=== PATIENT | female | born 1990 ===

== ENCOUNTER 2020-12-15 19:37 | Inpatient (IN) | payer MEDICAID ==
[2020-12-15] MEDS: Lactated Ringers 1,000 ML IV SCH (20:07)
[2020-12-15] MEDS ORDERED: Tranexamic Acid 1,000 MG in Sodium Chloride 0.9% 100 ML IV PRN (20:29)
[2020-12-15] MEDS ORDERED: Sodium Chloride 0.9% 10 ML Syringe FLUSH PRN (20:29)
[2020-12-15] MEDS ORDERED: Misoprostol 200 MCG Tab PO PRN (20:29)
[2020-12-15] MEDS ORDERED: Lidocaine 1% 50 ML MDV INJECT PRN (20:29)
[2020-12-15] MEDS ORDERED: Terbutaline 1 MG/ML SDV SUBCUT PRN (20:29)
[2020-12-15] MEDS ORDERED: Sodium Chloride 0.9% 10 ML SDV IV PRN (20:29)
[2020-12-15] MEDS ORDERED: Nalbuphine 10 MG/1 ML Vial IVPUSH PRN (20:29)
[2020-12-15] MEDS ORDERED: Water For Irrigation,Sterile 1,000 ML Container IRR PRN (20:29)
[2020-12-15] MEDS ORDERED: Carboprost Tromethamine 250 MCG/1 ML Amp IM PRN (20:29)
[2020-12-15] MEDS ORDERED: Ondansetron 4 MG/2 ML SDV IVPUSH PRN (20:29)
[2020-12-15] MEDS ORDERED: Methylergonovine 0.2 MG/1 ML Amp IM PRN (20:29)
[2020-12-15] MEDS ORDERED: Sodium Chloride 0.9% 2.5 ML Syringe FLUSH PRN (20:29)
[2020-12-15] MEDS ORDERED: Oxytocin/0.9 % Sodium Chloride 30 UNIT/500 ML BAG IV SCH ×2 (20:30)
[2020-12-15] MEDS ORDERED: Misoprostol 25 MCG (1/4 of 100 MCG) Tab ONE (20:43)
[2020-12-15] MEDS ORDERED: Misoprostol 25 MCG (1/4 of 100 MCG) Tab VAG PRN (21:00)
[2020-12-16] MEDS ORDERED: Misoprostol 25 MCG (1/4 of 100 MCG) Tab VAG PRN (01:00)
[2020-12-16] MEDS: Butorphanol 1 MG/ML SDV IVPUSH PRN ×3 (02:48→06:31)
[2020-12-16] MEDS ORDERED: Bupivacaine 0.25% 10 ML SDV ONE (08:37)
[2020-12-16] MEDS ORDERED: Ropivacaine HCl/PF 200 ML ONE ×2 (08:37→23:43)
[2020-12-16] MEDS: Lactated Ringers 1,000 ML IV SCH ×2 (09:57→17:41)
[2020-12-16] MEDS ORDERED: Acetaminophen 500 MG Tab PO ONE (17:31)
[2020-12-17] MEDS ORDERED: Lanolin 100% Cream 7 GM Tube TOP PRN (05:22)
[2020-12-17] MEDS ORDERED: Witch Hazel Medicated Pads 40/Jar TOP PRN (05:22)
[2020-12-17] MEDS ORDERED: Acetaminophen 500 MG Tab PO PRN ×2 (05:22)
[2020-12-17] MEDS ORDERED: Carboprost Tromethamine 250 MCG/1 ML Amp IM PRN (05:22)
[2020-12-17] MEDS ORDERED: Bisacodyl 10 MG Supp RECTAL PRN (05:22)
[2020-12-17] MEDS ORDERED: Tranexamic Acid 1,000 MG in Sodium Chloride 0.9% 100 ML IV PRN (05:22)
[2020-12-17] MEDS ORDERED: oxyCODONE 5 MG Tab PO PRN (05:22)
[2020-12-17] MEDS ORDERED: Methylergonovine 0.2 MG/1 ML Amp IM PRN (05:22)
[2020-12-17] MEDS ORDERED: Docusate Sodium 100 MG Cap PO PRN (05:22)
[2020-12-17] MEDS ORDERED: Ibuprofen 400 MG Tab PO PRN (05:22)
[2020-12-17] MEDS ORDERED: Benzocaine/Menthol 20%-0.5% Spray 78 GM Cannister TOP PRN (05:22)
[2020-12-17] MEDS ORDERED: Misoprostol 200 MCG Tab RECTAL PRN (05:22)
[2020-12-17] MEDS ORDERED: Oxytocin/0.9 % Sodium Chloride 30 UNIT/500 ML BAG ONE (05:26)
--- NOTE | 2020-12-17 12:01 | PCM.PREANE ---
Preanesthetic Assessment - Anesthesia/Transfusion/Family Hx Anesthesia History: No Prior Anesthesia Family History of Anesthesia Reaction: No Transfusion History: No Prior Transfusion(s) - Review of Systems General: No Symptoms Pulmonary: No Symptoms Cardiovascular: No Symptoms Gastrointestinal: No Symptoms Neurological: No Symptoms Other: Reports: None - Physical Assessment NPO Status Date: 12/16/20 NPO Status Time: 00:00 Vital Signs: Last Vital Signs Temp 97.4 F 12/17/20 07:15 Pulse 71 12/16/20 12:46 Resp 16 12/17/20 07:15 BP 121/74 12/17/20 07:15 Pulse Ox 99 12/16/20 12:46 Height: 4 ft 11 in Weight: 150 lb ASA Class: 2 Mental Status: Alert & Oriented x3 Airway Class: Mallampati = 3 Dentition: Reports: Normal Dentition ROM/Head Extension: Full Lungs: Clear to Auscultation, Normal Respiratory Effort Cardiovascular: Regular Rate, Regular Rhythm - Lab Values: Laboratory Last Values WBC 8.71 K/uL (4.0-11.0) 12/15/20 20:04 RBC 3.58 M/uL (4.30-5.90) L 12/15/20 20:04 Hgb 10.1 g/dL (12.0-16.0) L 12/15/20 20:04 Hct 31.1 % (36.0-46.0) L 12/15/20 20:04 MCV 86.9 fL (80.0-98.0) 12/15/20 20:04 MCH 28.2 pg (27.0-32.0) 12/15/20 20:04 MCHC 32.5 g/dL (31.0-37.0) 12/15/20 20:04 RDW Std Deviation 48.3 fl (28.0-62.0) 12/15/20 20:04 RDW Coeff of Rudy 15 % (11.0-15.0) 12/15/20 20:04 Plt Count 277 K/uL (150-400) 12/15/20 20:04 MPV 10.00 fL (7.40-12.00) 12/15/20 20:04 Nucleated RBC % 0.0 /100WBC 12/15/20 20:04 Nucleated RBCs # 0 K/uL 12/15/20 20:04 Cord ABG pH 7.172 (7.18-7.38) L 12/17/20 04:58 Cord ABG Base Excess -10 (-10--2) 12/17/20 04:58 Cord VBG pH 7.234 (7.25-7.45) L 12/17/20 04:58 Cord VBG Base Excess -9 (-10--2) 12/17/20 04:58 SARS-CoV-2 RNA (CHATO) NEGATIVE (NEGATIVE) 12/15/20 20:04 Blood Type A POSITIVE 12/15/20 20:04 Antibody Screen NEGATIVE 12/15/20 20:04 - Allergies Allergies/Adverse Reactions: Allergies Allergy/AdvReac Type Severity Reaction Status Date / Time No Known Allergies Allergy Verified 12/15/20 19:54 - Blood Blood Available: Yes Product(s) Available: PRBC - Anesthesia Plan Pre-Op Medication Ordered: None - Acknowledgements Anesthesia Type Planned: Epidural Pt an Appropriate Candidate for the Planned Anesthesia: Yes Alternatives and Risks of Anesthesia Discussed w Pt/Guardian: Yes Pt/Guardian Understands and Agrees with Anesthesia Plan: Yes PreAnesthesia Questionnaire - Past Health History Medical/Surgical History: Denies 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: - SUBSTANCE USE Tobacco Use Status *Q: Never Tobacco User Second Hand Smoke Exposure: No - HOME MEDS Home Medications: Home Meds Aspirin 81 mg PO DAILY 12/15/20 [History] Pnv No.95/Ferrous Fum/Folic AC [ Vitamin Tablet] 1 tab PO DAILY 12/15/20 [History] - CURRENT (IN HOUSE) MEDS Current Meds: Current Medications Acetaminophen (Acetaminophen 500 Mg Tab) 500 mg PO Q4H PRN PRN Reason: Pain (mild 1-3) Acetaminophen (Acetaminophen 500 Mg Tab) 1,000 mg PO Q4H PRN PRN Reason: Pain (mild 1-3) Last Admin: 12/17/20 07:37 Dose: 1,000 mg Documented by: Benzocaine/Menthol (Benzocaine/Menthol 20%-0.5% [place] 78 Gm Cannister) 78 gm TOP ASDIRECTED PRN PRN Reason: Perineal Comfort Measure Last Admin: 12/17/20 07:38 Dose: 1 can Documented by: Bisacodyl (Bisacodyl 10 Mg Supp) 10 mg RECTAL ONETIME PRN PRN Reason: Constipation Carboprost Tromethamine (Carboprost Tromethamine 250 Mcg/1 Ml Amp) 250 mcg IM ASDIRECTED PRN PRN Reason: Excessive vaginal bleeding Docusate Sodium (Docusate Sodium 100 Mg Cap) 100 mg PO Q12H PRN PRN Reason: Constipation Emollient Ointment (Lanolin 100% Cream 7 Gm Tube) 0 gm TOP ASDIRECTED PRN PRN Reason: Sore Nipples Last Admin: 12/17/20 07:37 Dose: 1 applic Documented by: Tranexamic Acid 1,000 mg/ (Sodium Chloride) 110 mls @ 660 mls/hr IV ONETIME PRN PRN Reason: Bleeding Ibuprofen (Ibuprofen 400 Mg Tab) 400 mg PO Q4H PRN PRN Reason: Pain (mild 1-3) Ibuprofen (Ibuprofen 800 Mg Tab) 800 mg PO Q6H PRN PRN Reason: Pain (mild 1-3) Methylergonovine Maleate (Methylergonovine 0.2 Mg/1 Ml Amp) 0.2 mg IM ONETIME PRN PRN Reason: Excessive Vaginal Bleeding Misoprostol (Misoprostol 200 Mcg Tab) 1,000 mcg RECTAL ONETIME PRN PRN Reason: excessive vaginal bleeding Oxycodone HCl (Oxycodone 5 Mg Tab) 5 mg PO Q2H PRN PRN Reason: Pain (severe 7-10) Sodium Chloride (Sodium Chloride 0.9% 10 Ml Syringe) 10 ml FLUSH ASDIRECTED PRN PRN Reason: Keep Vein Open Sodium Chloride (Sodium Chloride 0.9% 2.5 Ml Syringe) 2.5 ml FLUSH ASDIRECTED PRN PRN Reason: Keep Vein Open Sodium Chloride (Sodium Chloride 0.9% 10 Ml Sdv) 10 ml IV ASDIRECTED PRN PRN Reason: IV Use Witch Alise (Witch Alise Medicated Pads 40/Jar) 1 pad TOP ASDIRECTED PRN PRN Reason: comfort care Last Admin: 12/17/20 07:38 Dose: 1 box Documented by: Discontinued Medications Acetaminophen (Acetaminophen 500 Mg Tab) 1,000 mg PO ONETIME ONE Stop: 12/16/20 17:32 Last Admin: 12/16/20 17:43 Dose: 1,000 mg Documented by: Bupivacaine HCl (Bupivacaine 0.25% 10 Ml Sdv) Confirm Administered Dose 10 ml .ROUTE .STK-MED ONE Stop: 12/16/20 08:38 Butorphanol Tartrate (Butorphanol 1 Mg/Ml Sdv) 1 mg IVPUSH Q1H PRN PRN Reason: Pain (severe 7-10) Last Admin: 12/16/20 06:31 Dose: 1 mg Documented by: Carboprost Tromethamine (Carboprost Tromethamine 250 Mcg/1 Ml Amp) 250 mcg IM ASDIRECTED PRN PRN Reason: Post Hemorrhage Oxytocin/Sodium Chloride (Oxytocin 30 Unit/500 Ml-Ns) 30 unit in 500 mls @ 500 mls/hr IV TITRATE SUMAYA Last Admin: 12/17/20 05:00 Dose: 500 mls/hr Documented by: Tranexamic Acid 1,000 mg/ (Sodium Chloride) 110 mls @ 660 mls/hr IV ONETIME PRN PRN Reason: Bleeding Oxytocin/Sodium Chloride (Oxytocin 30 Unit/500 Ml-Ns) 30 unit in 500 mls @ 2 mls/hr IV TITRATE SUMAYA; Protocol Last Titration: 12/16/20 23:00 Dose: 17 munits/min, 17 mls/hr Documented by: Lactated Ringer's (Ringers, Lactated) 1,000 mls @ 150 mls/hr IV ASDIRECTED SUMAYA Last Admin: 12/16/20 17:41 Dose: 150 mls/hr Documented by: Ropivacaine (Naropin 0.2%) Confirm Administered Dose 200 mls @ as directed .ROUTE .STK-MED ONE Stop: 12/16/20 08:38 Ropivacaine (Naropin 0.2%) Confirm Administered Dose 200 mls @ as directed .ROUTE .STK-MED ONE Stop: 12/16/20 23:44 Oxytocin/Sodium Chloride (Oxytocin 30 Unit/500 Ml-Ns) Confirm Administered Dose 30 unit in 500 mls @ as directed .ROUTE .STK-MED ONE Stop: 12/17/20 05:27 Lidocaine HCl (Lidocaine 1% 50 Ml Mdv) 50 ml INJECT ONETIME PRN PRN Reason: Laceration repair Methylergonovine Maleate (Methylergonovine 0.2 Mg/1 Ml Amp) 0.2 mg IM ASDIRECTED PRN PRN Reason: Post Hemorrhage Misoprostol (Misoprostol 200 Mcg Tab) 200 mcg PO ONETIME PRN PRN Reason: Post Hemorrhage Misoprostol (Misoprostol 25 Mcg (1/4 Of 100 Mcg) Tab) 25 mcg VAG ONETIME PRN PRN Reason: Cervical Ripening Last Admin: 12/15/20 20:56 Dose: 25 mcg Documented by: Misoprostol (Misoprostol 25 Mcg (1/4 Of 100 Mcg) Tab) 25 mcg VAG Q4H PRN PRN Reason: Cervical Ripening Last Admin: 12/16/20 01:01 Dose: 25 mcg Documented by: Misoprostol (Misoprostol 25 Mcg (1/4 Of 100 Mcg) Tab) Confirm Administered Dose 25 mcg .ROUTE .STK-MED ONE Stop: 12/15/20 20:44 Nalbuphine HCl (Nalbuphine 10 Mg/1 Ml Vial) 10 mg IVPUSH Q1H PRN PRN Reason: Pain (severe 7-10) Ondansetron HCl (Ondansetron 4 Mg/2 Ml Sdv) 4 mg IVPUSH Q6H PRN PRN Reason: Nausea/Vomiting Sterile Water (Water For Irrigation,Sterile 1,000 Ml Container) 1,000 ml IRR ASDIRECTED PRN PRN Reason: delivery Terbutaline Sulfate (Terbutaline 1 Mg/Ml Sdv) 0.25 mg SUBCUT ASDIRECTED PRN PRN Reason: Tacysystole - Pre-Procedure Checklist Attending Provider Aware: Yes Chart Reviewed: Yes Consent Signed: Yes Labs Reviewed: Yes VS/FHR Reviewed: Yes Patient Identification Confirmation Method: Reports: Verbal Patient Pt an Appropriate Candidate for the Planned Anesthesia: Yes Alternatives and Risks of Anesthesia Discussed w Pt/Guardian: Yes - Procedure Procedure Start Date: 12/16/20 Procedure Start Time: 08:[address]: Reports: Blood Pressure, Heart Rate, SPO2 Functional IV: Yes Safety Measures: Reports: Patient Identified, Procedure Verified, Site Verified, Procedure Time Out Patient Position: Reports: Sitting Prep: Reports: Betadine x3, Sterile Drape Local Anesthetic: Reports: Intradermal Wheal w Lidocaine 1% Regional Placement Level: Reports: L3-4 Needle: Reports: 17 g Touhy Approach: Reports: Midline Technique: Reports: MARC Plastic Syringe Parasthesia: Reports: None Fluid Obtained: Reports: None Test Dose Time: 08:47 Test Dose Medication: Reports: Lidocaine 1.5% w Epinephrine 1:200,000 Test Dose Response: Reports: Negative Loading Dose Time: 08:50 Loading Dose Medication: bupivicaine 0.25% 10cc Loading Dose Patient Position: sitting Continuous Infusion Start Time: 08:55 Continuous Infusion Medication: ropivicaine 0.2% Continuous Infusion Rate: 14 Continuous Infusion PCS Bolus Option: 4 Continuous Infusion Lockout Dose (cc/hr): 20 Patient Position Post Placement: Reports: Supline/FEROZ VS and FHR Monitored in Unit Post Placement: Yes Procedure End Date: 12/16/20 Procedure End Time: 09:42
[2020-12-17] MEDS: Ibuprofen 800 MG Tab PO PRN ×2 (13:58→21:28)
--- NOTE | 2020-12-17 18:08 | OR ---
SURGEON: Rhett Greenfield MD DATE OF PROCEDURE: 12/17/2020 INDICATION FOR PROCEDURE: A 30-year-old -1-2-0 at 39 weeks and 4 days, admitted for induction of labor for polyhydramnios. The patient was noted to have polyhydramnios with ROSY between 25 and 27 at 35 weeks. arrhythmia was also found at that time, she was evaluated by Perinatology and found to have a normal anatomy. The arrhythmia resolved on its own at 38 weeks. She had weekly BPP and NSTs that were reassuring She has a history of demise of unknown cause around 24 weeks. She otherwise had an uncomplicated . She received 2 doses of Cytotec for cervical ripening, she was luis frequently every 1 to 2 minutes and did progress to 1 cm dilated. She then received an epidural, and Pitocin was started. AROM was also performed with a copious amount of fluid. The tracing was mostly category 1 with periods that had minimal variability and variable decels that responded to repositioning. The fluid became meconium stained. The patient made cervical change and became fully dilated with the urge to push. PREOPERATIVE DIAGNOSES: 1. Gallardo intrauterine at 39 weeks and 4 days. 2. Polyhydramnios. POSTOPERATIVE DIAGNOSES: 1. Gallardo intrauterine at 39 weeks and 4 days. 2. Polyhydramnios. PROCEDURE PERFORMED: Normal spontaneous vaginal delivery, repair of first-degree laceration. ANESTHESIOLOGIST: Dr. Freddie Davis. ANESTHESIA: Epidural. FINDINGS: Viable male , score of 7 and 9. weight of 7 pounds 7 ounces. Meconium-stained fluid was. ESTIMATED BLOOD LOSS: 300 mL. DESCRIPTION OF PROCEDURE: The patient pushed with contractions for approximately 3.5 hours. She did make descent slowly. Cat 1 tracing with early decels. head delivered in occiput anterior position, restituted ROT. Anterior shoulder delivered easily followed by posterior shoulder and remaining body. No nuchal cord was noted. The baby was placed on maternal chest and evaluated by awaiting nursery staff and accordion repairer. The baby was pink and moving all extremities. Had a weak cry initially that did improve with resuscitation. The umbilical cord was clamped and cut after 30 seconds and no longer pulsating. Cord gases were obtained. The placenta was removed with gentle traction on the umbilical cord. It was examined to be intact with 3-vessel cord. The perineum and vagina were examined, and she had a 1st-degree laceration, it was repaired with 0 Vicryl in usual fashion. Fundal massage was performed and the uterus was firm, and at the umbilicus, the bleeding was initially moderate, but improved to minimal. The patient tolerated the procedure well and was given care instructions. PRISCILA SHAH /[id number] [id number]
[2020-12-18] MEDS: Ibuprofen 800 MG Tab PO PRN (08:27)
--- NOTE | 2020-12-18 12:27 | PCM.PNPP ---
- General Info Date of Service: 12/18/20 Functional Status: Reports: Pain Controlled, Tolerating Diet, Ambulating, Urinating - Review of Systems General: Reports: No Symptoms HEENT: Reports: No Symptoms Pulmonary: Reports: No Symptoms Cardiovascular: Reports: No Symptoms Gastrointestinal: Reports: No Symptoms Genitourinary: Reports: No Symptoms Musculoskeletal: Reports: No Symptoms Skin: Reports: No Symptoms Neurological: Reports: No Symptoms Psychiatric: Reports: No Symptoms - Patient Data Vital Signs - Most Recent: Last Vital Signs Temp 36.8 C 12/18/20 08:15 Pulse 82 12/18/20 02:00 Resp 17 12/18/20 08:15 BP 110/68 12/18/20 08:15 Pulse Ox 97 12/18/20 08:15 Weight - Most Recent: 150 lb Lab Results - Last 24 Hours: Laboratory Results - last 24 hr 12/18/20 Range/Units 06:33 Hgb 8.1 L (12.0-16.0) g/dL Hct 25.2 L (36.0-46.0) % Med Orders - Current: Current Medications Acetaminophen (Acetaminophen 500 Mg Tab) 500 mg PO Q4H PRN PRN Reason: Pain (mild 1-3) Acetaminophen (Acetaminophen 500 Mg Tab) 1,000 mg PO Q4H PRN PRN Reason: Pain (mild 1-3) Last Admin: 12/17/20 07:37 Dose: 1,000 mg Documented by: Benzocaine/Menthol (Benzocaine/Menthol 20%-0.5% [place] 78 Gm Cannister) 78 gm TOP ASDIRECTED PRN PRN Reason: Perineal Comfort Measure Last Admin: 12/17/20 07:38 Dose: 1 can Documented by: Bisacodyl (Bisacodyl 10 Mg Supp) 10 mg RECTAL ONETIME PRN PRN Reason: Constipation Carboprost Tromethamine (Carboprost Tromethamine 250 Mcg/1 Ml Amp) 250 mcg IM ASDIRECTED PRN PRN Reason: Excessive vaginal bleeding Docusate Sodium (Docusate Sodium 100 Mg Cap) 100 mg PO Q12H PRN PRN Reason: Constipation Emollient Ointment (Lanolin 100% Cream 7 Gm Tube) 0 gm TOP ASDIRECTED PRN PRN Reason: Sore Nipples Last Admin: 12/17/20 07:37 Dose: 1 applic Documented by: Tranexamic Acid 1,000 mg/ (Sodium Chloride) 110 mls @ 660 mls/hr IV ONETIME PRN PRN Reason: Bleeding Ibuprofen (Ibuprofen 400 Mg Tab) 400 mg PO Q4H PRN PRN Reason: Pain (mild 1-3) Ibuprofen (Ibuprofen 800 Mg Tab) 800 mg PO Q6H PRN PRN Reason: Pain (mild 1-3) Last Admin: 12/18/20 08:27 Dose: 800 mg Documented by: Methylergonovine Maleate (Methylergonovine 0.2 Mg/1 Ml Amp) 0.2 mg IM ONETIME PRN PRN Reason: Excessive Vaginal Bleeding Misoprostol (Misoprostol 200 Mcg Tab) 1,000 mcg RECTAL ONETIME PRN PRN Reason: excessive vaginal bleeding Oxycodone HCl (Oxycodone 5 Mg Tab) 5 mg PO Q2H PRN PRN Reason: Pain (severe 7-10) Sodium Chloride (Sodium Chloride 0.9% 10 Ml Syringe) 10 ml FLUSH ASDIRECTED PRN PRN Reason: Keep Vein Open Sodium Chloride (Sodium Chloride 0.9% 2.5 Ml Syringe) 2.5 ml FLUSH ASDIRECTED PRN PRN Reason: Keep Vein Open Sodium Chloride (Sodium Chloride 0.9% 10 Ml Sdv) 10 ml IV ASDIRECTED PRN PRN Reason: IV Use Witch Alise (Witch Alise Medicated Pads 40/Jar) 1 pad TOP ASDIRECTED PRN PRN Reason: comfort care Last Admin: 12/17/20 07:38 Dose: 1 box Documented by: Discontinued Medications Acetaminophen (Acetaminophen 500 Mg Tab) 1,000 mg PO ONETIME ONE Stop: 12/16/20 17:32 Last Admin: 12/16/20 17:43 Dose: 1,000 mg Documented by: Bupivacaine HCl (Bupivacaine 0.25% 10 Ml Sdv) Confirm Administered Dose 10 ml .ROUTE .STK-MED ONE Stop: 12/16/20 08:38 Butorphanol Tartrate (Butorphanol 1 Mg/Ml Sdv) 1 mg IVPUSH Q1H PRN PRN Reason: Pain (severe 7-10) Last Admin: 12/16/20 06:31 Dose: 1 mg Documented by: Carboprost Tromethamine (Carboprost Tromethamine 250 Mcg/1 Ml Amp) 250 mcg IM ASDIRECTED PRN PRN Reason: Post Hemorrhage Oxytocin/Sodium Chloride (Oxytocin 30 Unit/500 Ml-Ns) 30 unit in 500 mls @ 500 mls/hr IV TITRATE SUMAYA Last Admin: 12/17/20 05:00 Dose: 500 mls/hr Documented by: Tranexamic Acid 1,000 mg/ (Sodium Chloride) 110 mls @ 660 mls/hr IV ONETIME PRN PRN Reason: Bleeding Oxytocin/Sodium Chloride (Oxytocin 30 Unit/500 Ml-Ns) 30 unit in 500 mls @ 2 mls/hr IV TITRATE [facility]; Protocol Last Titration: 12/16/20 23:00 Dose: 17 munits/min, 17 mls/hr Documented by: Lactated Ringer's (Ringers, Lactated) 1,000 mls @ 150 mls/hr IV ASDIRECTED [facility] Last Admin: 12/16/20 17:41 Dose: 150 mls/hr Documented by: Ropivacaine (Naropin 0.2%) Confirm Administered Dose 200 mls @ as directed .ROUTE .STK-MED ONE Stop: 12/16/20 08:38 Ropivacaine (Naropin 0.2%) Confirm Administered Dose 200 mls @ as directed .ROUTE .STK-MED ONE Stop: 12/16/20 23:44 Oxytocin/Sodium Chloride (Oxytocin 30 Unit/500 Ml-Ns) Confirm Administered Dose 30 unit in 500 mls @ as directed .ROUTE .STK-MED ONE Stop: 12/17/20 05:27 Lidocaine HCl (Lidocaine 1% 50 Ml Mdv) 50 ml INJECT ONETIME PRN PRN Reason: Laceration repair Methylergonovine Maleate (Methylergonovine 0.2 Mg/1 Ml Amp) 0.2 mg IM ASDIRECTED PRN PRN Reason: Post Hemorrhage Misoprostol (Misoprostol 200 Mcg Tab) 200 mcg PO ONETIME PRN PRN Reason: Post Hemorrhage Misoprostol (Misoprostol 25 Mcg (1/4 Of 100 Mcg) Tab) 25 mcg VAG ONETIME PRN PRN Reason: Cervical Ripening Last Admin: 12/15/20 20:56 Dose: 25 mcg Documented by: Misoprostol (Misoprostol 25 Mcg (1/4 Of 100 Mcg) Tab) 25 mcg VAG Q4H PRN PRN Reason: Cervical Ripening Last Admin: 12/16/20 01:01 Dose: 25 mcg Documented by: Misoprostol (Misoprostol 25 Mcg (1/4 Of 100 Mcg) Tab) Confirm Administered Dose 25 mcg .ROUTE .STK-MED ONE Stop: 12/15/20 20:44 Nalbuphine HCl (Nalbuphine 10 Mg/1 Ml Vial) 10 mg IVPUSH Q1H PRN PRN Reason: Pain (severe 7-10) Ondansetron HCl (Ondansetron 4 Mg/2 Ml Sdv) 4 mg IVPUSH Q6H PRN PRN Reason: Nausea/Vomiting Sterile Water (Water For Irrigation,Sterile 1,000 Ml Container) 1,000 ml IRR ASDIRECTED PRN PRN Reason: delivery Terbutaline Sulfate (Terbutaline 1 Mg/Ml Sdv) 0.25 mg SUBCUT ASDIRECTED PRN PRN Reason: Tacysystole - Interaction Disposition, : at Bedside Infant Interaction: Holding Infant Feeding: Bottle Fed Infant Support Person: Significant Other - Recovery Exam Fundal Tone: Firm Fundal Level: 1 Fingerbreadths Above Umbilicus Fundal Placement: Midline Lochia Amount: Scant Lochia Color: Rubra/Red Perineum Description: Intact, Minimal Bruising/Swelling Episiotomy/Laceration: Approximated Bladder Status: Voiding Urinary Elimination: Voided - Exam General: Alert, Oriented, Cooperative, No Acute Distress HEENT: Pupils Equal, Pupils Reactive Neck: Supple, Trachea Midline, No JVD Lungs: Normal Respiratory Effort GI/Abdominal Exam: Soft, Non-Tender, No Distention Extremities: Normal Inspection, Normal Range of Motion, Non-Tender, No Pedal Edema Skin: Warm, Dry, Intact Wound/Incisions: Healing Well Neurological: No New Focal Deficit Psy/Mental Status: Alert, Normal Affect, Normal Mood - Problem List Review Problem List Initiated/Reviewed/Updated: Yes - My Orders Last 24 Hours: My Active Orders 12/18/20 12:24 Ready for Discharge [RC] PER UNIT ROUTINE - Assessment Assessment:: 30yo PPD 1 s/p , Stable and recovering well. - Plan Plan:: - vitals stable - ambulating and tolerating PO - bleeding light, Hgb 8.1, denies s/s of anemia. Will start oral iron supplement Stable for discharge home, reviewed care instructions.
== END 2020-12-18 17:50 | disposition home or self-care (01) | DRG 807 ==
LOC: MW.OBCHECK 19:37 → MW.OB 19:40 → OBSVTOIN 12-17 04:58 → MW.OB 12-17 10:26
PROVIDERS: ADMIT Obstetrics & Gynecology; ATTEND Obstetrics & Gynecology
PROC: 10E0XZZ Delivery of Products of Conception, External Approach (ICD-10-PCS; principal; 2020-12-17)
PROC: 0HQ9XZZ Repair Perineum Skin, External Approach (ICD-10-PCS; 2020-12-17)
PROC: 3E0P7VZ Introduction of Hormone into Female Reproductive, Via Natural or Artificial Opening (ICD-10-PCS; 2020-12-17)
PROC: 10907ZC Drainage of Amniotic Fluid, Therapeutic from Products of Conception, Via Natural or Artificial Opening (ICD-10-PCS; 2020-12-17)
PROC: 0HQ9XZZ Repair Perineum Skin, External Approach (ICD-10-PCS; 2020-12-17)
DX: O40.3XX0 Polyhydramnios, third trimester, not applicable or unspecified (principal); Z37.0 Single live birth; Z3A.38 38 weeks gestation of pregnancy; O77.0 Labor and delivery complicated by meconium in amniotic fluid; O76 Abnormality in fetal heart rate and rhythm complicating labor and delivery; Z20.822 Contact with and (suspected) exposure to COVID-19
CPT/HCPCS: 01967; 36415; 51702; 59025; 59409; 82803; 85014; 85018; 85027; 86592; 86850; 86900; 86901; A9270-GY; J0595; J2590; J2795; J3490; J7120; U0002